=== PATIENT | female | born 1940 | race African-American/Black ===

== ENCOUNTER 2017-06-13 12:51 | Inpatient (IN) | payer MEDICARE, MEDICAID ==
[~2017-06-13] VITALS: Ht 160 cm; Wt 89.4 kg
[2017-06-13] MEDS ORDERED: MORPHINE SULFATE 4 MG/ML CPJ (NOT FOR IM USE) IV STA (14:21)
[2017-06-13] MEDS ORDERED: SODIUM CHLORIDE 0.9% 1,000 ML IV ONE (14:21)
[2017-06-13] MEDS ORDERED: ONDANSETRON HCL 4MG/2ML VIAL IV STA (14:21)
[2017-06-13 14:52] LABS: EOSINOPHILS % 0.2 % (0.0-5.0); HEMATOCRIT. 41.2 % (36.0-48.0); HEMOGLOBIN. 13.2 g/dL (12.0-16.0); LYMPHOCYTES % 10.7 % (20.0-50.0); MEAN CORPUSCULAR HEMOGLOBIN 22.4 pg (28.0-32.0); MEAN CORPUSCULAR VOLUME 69.5 fL (81.0-99.0); MONOCYTES % 9.7 % (2.0-8.0); NEUTROPHILS % 78.4 % (40.0-76.0); RED BLOOD CELL COUNT 5.92 mill/uL (4.2-5.4); RED CELL DISTRIBUTION WIDTH 17.2 % (11.6-14.6)
[2017-06-13 14:58] LABS: INR 1.1
[2017-06-13] MEDS ORDERED: PIPERACILLIN/TAZ 3.375G PREMIX 50 ML IV ONE (15:30)
[2017-06-13 15:41] LABS: PLATELET ESTIMATE DECREASED
[2017-06-13 15:44] LABS: PLATELET 68 x1000/uL (130-400)
[2017-06-13 15:59] LABS: CARBON DIOXIDE 24 mEq/L (21-32); CHLORIDE 100 mEq/L (98-107)
[2017-06-13 16:03] LABS: TROPONIN I < 0.02 ng/mL (0.00-0.04)
[2017-06-13 16:33] LABS: CLARITY URINE CLOUDY (CLEAR); COLOR URINE ORANGE (YELLOW); GLUCOSE URINE NEGATIVE (NEGATIVE); KETONES URINE 2+ (NEGATIVE); LEUKOCYTE ESTERASE URINE TRACE (NEGATIVE); NITRITE URINE POSITIVE (NEGATIVE); OCCULT BLOOD URINE 1+ (NEGATIVE); PROTEIN URINE 1+ (NEGATIVE); SPECIFIC GRAVITY URINE 1.039 (1.005-1.030)
[2017-06-13] MEDS ORDERED: IOHEXOL-300 100 ML BOTTLE ONE (17:01)
[2017-06-13] MEDS ORDERED: ENOXAPARIN 100MG/ML SYR SUBCUT ONE (17:15)
[2017-06-13 18:50] VITALS: BP 145/68
[2017-06-13 20:00] VITALS: BP 133/77
[2017-06-13] MEDS ORDERED: METF10002 PO (22:03)
[2017-06-13] MEDS ORDERED: FURO20TA4 PO (22:04)
[2017-06-13] MEDS ORDERED: BENA20TA3 PO (22:04)
[2017-06-13] MEDS ORDERED: GABA-531 PO (22:05)
[2017-06-13] MEDS ORDERED: AMA4 PO (22:06)
[2017-06-13] MEDS ORDERED: ESOM40CA PO (22:06)
[2017-06-13] MEDS ORDERED: SIMV20TA6 PO (22:08)
[2017-06-13] MEDS ORDERED: MIRA25TA PO (22:08)
[2017-06-13] MEDS ORDERED: CARB1TAB9 PO (22:10)
[2017-06-13] MEDS ORDERED: FERR325T6 PO (22:11)
[2017-06-13] MEDS ORDERED: ASPI-1159 PO (22:12)
[2017-06-13] MEDS ORDERED: DEXTROSE 50% WATER 50ML SYRINGE IV PRN (23:15)
[2017-06-13] MEDS ORDERED: IPRATROPIUM/ALBUTEROL 0.5-3(2.5)MG/3ML NEB HHN PRN (23:19)
[2017-06-13] MEDS ORDERED: CLONIDINE 0.2MG TABLET PO PRN (23:20)
[2017-06-14] VITALS: BP 134/68
[2017-06-14] MEDS: DEXT 5%/0.45% NACL 1000ML 1,000 ML IV SCH ×2 (00:36→18:02)
[2017-06-14] MEDS: PIPERACILLIN/TAZ 3.375G PREMIX 50 ML IV SCH ×4 (00:49→17:37)
[2017-06-14 04:06] VITALS: BP 152/80
[2017-06-14] MEDS: MORPHINE SULFATE 4 MG/ML CPJ (NOT FOR IM USE) IV PRN ×2 (04:20→11:18)
[2017-06-14] MEDS: INSULIN LISPRO 100 UNITS/ML SUBCUT SCH ×4 (06:00→17:38)
[2017-06-14] MEDS: BLOOD SUGAR DIAGNOSTIC STRIP TEST SCH ×4 (06:00→16:44)
[2017-06-14 07:00] LABS: HEMATOCRIT 34.5 % (36.0-48.0); HEMOGLOBIN 11.2 g/dL (12.0-16.0); MEAN CORPUSCULAR HEMOGLOBIN 22.3 pg (28.0-32.0); MEAN CORPUSCULAR VOLUME 68.8 fL (81.0-99.0); PLATELET 53 x1000/uL (130-400); RED BLOOD CELL COUNT 5.02 mill/uL (4.2-5.4); RED CELL DISTRIBUTION WIDTH 16.7 % (11.6-14.6)
[2017-06-14] MEDS: PANTOPRAZOLE 40MG DR TABLET PO SCH (07:10)
[2017-06-14 07:11] LABS: INR 1.1
[2017-06-14 07:49] LABS: CARBON DIOXIDE 25 mEq/L (21-32)
[2017-06-14 07:59] LABS: CHLORIDE 103 mEq/L (98-107)
[2017-06-14 08:00] VITALS: BP 146/80
[2017-06-14 08:42] LABS: CARCINO EMBRYONIC ANTIGEN < 0.5 ng/ml; HEPATITIS A AB IGM NEGATIVE (NEGATIVE); HEPATITIS B CORE AB IGM NEGATIVE; HEPATITIS B SURFACE ANTIGEN NEGATIVE
[2017-06-14] MEDS: OXYBUTYNIN CHLORIDE 5MG TABLET PO SCH ×2 (09:00→21:00)
[2017-06-14] MEDS ORDERED: MIRABEGRON 25 MG PO SCH (09:00)
[2017-06-14] MEDS: BENAZEPRIL 20MG TABLET PO SCH (09:00)
[2017-06-14] MEDS: GABAPENTIN 300MG CAPSULE PO SCH ×2 (09:00→16:40)
[2017-06-14] MEDS: FUROSEMIDE 20MG TABLET PO SCH (09:00)
[2017-06-14] MEDS: CARBIDOPA/LEVODOPA 25/100MG TABLET PO SCH ×2 (09:00→16:40)
[2017-06-14] MEDS ORDERED: APIXABAN 5 MG TABLET PO NR (10:50)
[2017-06-14] MEDS ORDERED: SODIUM CHLORIDE 0.9% 10ML VIAL ONE (10:52)
[2017-06-14] MEDS ORDERED: SIMETHICONE 40 MG/0.6 ML 30ML ONE (10:52)
[2017-06-14] MEDS ORDERED: IPRATROPIUM/ALBUTEROL 0.5-3(2.5)MG/3ML NEB HHN PRN (11:00)
[2017-06-14 11:16] LABS: BG BASE EXCESS 1.4 mmol/L (-2.0-2.0); BG CARBOXYHEMOGLOBIN 1.4 % (0.5-1.5); BG DEOXYHEMOGLOBIN 10.4 % (0.0-5.0); BG FRACTION INSPIRED OXYGEN 21; BG HCO3 ACT 25.9 mmol/L (22.0-26.0); BG METHEMOGLOBIN 0.2 % (0.0-1.5); BG OXYGEN SATURATION 89.4 % (92.0-98.5); BG PCO2 40.4 mmHg (35.0-45.0); BG PH 7.424 (7.350-7.450); BG PO2 56.9 mmHg (75.0-100.0); BG SAMPLE SITE LEFT BRACHIAL; BG TOTAL HEMOGLOBIN 12.4 g/dL (12.0-18.0); BG VENT MODE ROOM AIR
[2017-06-14 12:00] VITALS: BP 131/69
[2017-06-14] MEDS ORDERED: FENTANYL CITRATE/PF 50MCG/ML 2ML VIAL ONE (14:18)
[2017-06-14] MEDS ORDERED: MIDAZOLAM HCL 5 MG/5 ML VIAL ONE (14:18)
[2017-06-14] MEDS ORDERED: FENTANYL CITRATE/PF 50MCG/ML 2ML VIAL IV PRN (14:18)
[2017-06-14] MEDS ORDERED: MIDAZOLAM HCL 5 MG/5 ML VIAL IV PRN (14:30)
[2017-06-14] MEDS ORDERED: MORPHINE SULFATE 4 MG/ML CPJ (NOT FOR IM USE) IV NR (15:00)
[2017-06-14] MEDS: ONDANSETRON HCL 4MG/2ML VIAL IV PRN (15:13)
[2017-06-14 16:00] VITALS: BP 141/77
[2017-06-14] MEDS: APIXABAN 5 MG TABLET PO SCH (16:40)
[2017-06-14] MEDS ORDERED: MEDICATION NOT ON FORMULARY EA (Simvastatin 1 TAB) PO SCH (17:00)
[2017-06-14 20:00] VITALS: BP 130/75
[2017-06-14] MEDS: ATORVASTATIN CALCIUM 10MG TABLET PO SCH (21:27)
[2017-06-15] VITALS: BP 134/74
[2017-06-15] MEDS: PIPERACILLIN/TAZ 3.375G PREMIX 50 ML IV SCH ×5 (00:59→23:07)
[2017-06-15] MEDS: DEXT 5%/0.45% NACL 1000ML 1,000 ML IV SCH ×3 (01:00→21:03)
[2017-06-15] MEDS: INSULIN LISPRO 100 UNITS/ML SUBCUT SCH ×5 (01:06→23:08)
[2017-06-15 04:00] VITALS: BP 127/68
[2017-06-15] MEDS: MORPHINE SULFATE 4 MG/ML CPJ (NOT FOR IM USE) IV PRN (06:06)
[2017-06-15] MEDS: BLOOD SUGAR DIAGNOSTIC STRIP TEST SCH ×5 (06:10→23:09)
[2017-06-15 06:59] LABS: BASOPHILS % 0.2 % (0.0-2.0); HEMATOCRIT. 34.2 % (36.0-48.0); HEMOGLOBIN. 11.1 g/dL (12.0-16.0); LYMPHOCYTES % 14.1 % (20.0-50.0); MEAN CORPUSCULAR HEMOGLOBIN 22.5 pg (28.0-32.0); MEAN CORPUSCULAR VOLUME 69.3 fL (81.0-99.0); MEAN PLATELET VOLUME 10.4 fl (7.4-10.4); MONOCYTES % 9.9 % (2.0-8.0); NEUTROPHILS % 74.8 % (40.0-76.0); PLATELET 58 x1000/uL (130-400); RED BLOOD CELL COUNT 4.93 mill/uL (4.2-5.4); RED CELL DISTRIBUTION WIDTH 16.9 % (11.6-14.6)
[2017-06-15] MEDS: PANTOPRAZOLE 40MG DR TABLET PO SCH (07:00)
[2017-06-15 07:52] LABS: CARBON DIOXIDE 25 mEq/L (21-32); CHLORIDE 102 mEq/L (98-107); CREATINE KINASE 15 IU/L (26-192); CREATINE KINASE MB FRACTION < 0.5 ng/mL (0.5-3.6); PHOSPHORUS 2.4 mg/dL (2.5-4.9); PREALBUMIN 3.8 mg/dL (20.0-40.0); TROPONIN I < 0.02 ng/mL (0.00-0.04)
[2017-06-15 08:00] VITALS: BP 105/60
[2017-06-15] MEDS: BENAZEPRIL 20MG TABLET PO SCH (08:09)
[2017-06-15] MEDS: CARBIDOPA/LEVODOPA 25/100MG TABLET PO SCH ×2 (08:19→17:25)
[2017-06-15] MEDS: OXYBUTYNIN CHLORIDE 5MG TABLET PO SCH ×2 (08:19→20:28)
[2017-06-15] MEDS: APIXABAN 5 MG TABLET PO SCH ×2 (08:19→17:25)
[2017-06-15] MEDS: GABAPENTIN 300MG CAPSULE PO SCH ×2 (08:20→17:25)
[2017-06-15] MEDS: FUROSEMIDE 20MG TABLET PO SCH (08:20)
[2017-06-15 12:00] VITALS: BP 114/62
[2017-06-15] MEDS: POTASSIUM-SODIUM PHOSPHATE POWDER PACKET PO SCH (13:45)
[2017-06-15 16:00] VITALS: BP 123/73
[2017-06-15] MEDS: CALCIUM CARBONATE 1250MG TABLET (500MG ELEMENTAL CALCIUM) PO SCH (17:25)
[2017-06-15 20:00] VITALS: BP 126/80
[2017-06-15] MEDS: ATORVASTATIN CALCIUM 10MG TABLET PO SCH (20:28)
[2017-06-15 23:58] LABS: PLATELET ESTIMATE DECREASED
[2017-06-16] VITALS: BP 125/76
[2017-06-16 04:00] VITALS: BP 120/74
[2017-06-16] MEDS: PIPERACILLIN/TAZ 3.375G PREMIX 50 ML IV SCH ×4 (05:46→23:58)
[2017-06-16] MEDS: BLOOD SUGAR DIAGNOSTIC STRIP TEST SCH ×4 (05:50→23:54)
[2017-06-16] MEDS: INSULIN LISPRO 100 UNITS/ML SUBCUT SCH ×4 (06:11→23:55)
[2017-06-16] MEDS: PANTOPRAZOLE 40MG DR TABLET PO SCH (06:17)
[2017-06-16 08:00] VITALS: BP 138/76
[2017-06-16] MEDS: OXYBUTYNIN CHLORIDE 5MG TABLET PO SCH ×2 (10:01→20:45)
[2017-06-16] MEDS: GABAPENTIN 300MG CAPSULE PO SCH ×2 (10:02→17:28)
[2017-06-16] MEDS: POTASSIUM-SODIUM PHOSPHATE POWDER PACKET PO SCH (10:02)
[2017-06-16] MEDS: FUROSEMIDE 20MG TABLET PO SCH (10:02)
[2017-06-16] MEDS: APIXABAN 5 MG TABLET PO SCH ×2 (10:02→17:28)
[2017-06-16] MEDS: BENAZEPRIL 20MG TABLET PO SCH (10:02)
[2017-06-16] MEDS: CARBIDOPA/LEVODOPA 25/100MG TABLET PO SCH ×2 (10:02→17:28)
[2017-06-16] MEDS: CALCIUM CARBONATE 1250MG TABLET (500MG ELEMENTAL CALCIUM) PO SCH ×2 (10:02→17:28)
[2017-06-16] MEDS: ONDANSETRON HCL 4MG/2ML VIAL IV PRN (10:09)
[2017-06-16 12:00] VITALS: BP 158/78
[2017-06-16 16:00] VITALS: BP 128/69
[2017-06-16] MEDS: DEXT 5%/0.45% NACL 1000ML 1,000 ML IV SCH (16:06)
[2017-06-16] MEDS: ACETAMINOPHEN 325MG TABLET PO PRN (19:58)
[2017-06-16 20:00] VITALS: BP 124/72
[2017-06-16] MEDS: ATORVASTATIN CALCIUM 10MG TABLET PO SCH (20:45)
[2017-06-17] VITALS: BP 124/73
[2017-06-17 04:00] VITALS: BP 118/73
[2017-06-17] MEDS: PIPERACILLIN/TAZ 3.375G PREMIX 50 ML IV SCH ×3 (05:51→18:48)
[2017-06-17] MEDS: BLOOD SUGAR DIAGNOSTIC STRIP TEST SCH ×3 (05:56→18:29)
[2017-06-17] MEDS: INSULIN LISPRO 100 UNITS/ML SUBCUT SCH ×3 (05:57→18:00)
[2017-06-17] MEDS: PANTOPRAZOLE 40MG DR TABLET PO SCH (06:25)
[2017-06-17 08:00] VITALS: BP 139/72
[2017-06-17 08:02] LABS: CARBON DIOXIDE 29 mEq/L (21-32); CHLORIDE 98 mEq/L (98-107)
[2017-06-17 08:05] LABS: BASOPHILS % 0.6 % (0.0-2.0); EOSINOPHILS % 2.7 % (0.0-5.0); HEMATOCRIT. 33.3 % (36.0-48.0); HEMOGLOBIN. 10.8 g/dL (12.0-16.0); LYMPHOCYTES % 16.7 % (20.0-50.0); MEAN CORPUSCULAR HEMOGLOBIN 22.4 pg (28.0-32.0); MEAN CORPUSCULAR VOLUME 68.7 fL (81.0-99.0); MEAN PLATELET VOLUME 10.7 fl (7.4-10.4); MONOCYTES % 11.3 % (2.0-8.0); NEUTROPHILS % 68.7 % (40.0-76.0); PLATELET 65 x1000/uL (130-400); RED BLOOD CELL COUNT 4.85 mill/uL (4.2-5.4); RED CELL DISTRIBUTION WIDTH 16.4 % (11.6-14.6)
[2017-06-17] MEDS: POTASSIUM-SODIUM PHOSPHATE POWDER PACKET PO SCH (09:03)
[2017-06-17] MEDS: OXYBUTYNIN CHLORIDE 5MG TABLET PO SCH ×2 (09:03→20:28)
[2017-06-17] MEDS: FUROSEMIDE 20MG TABLET PO SCH (09:03)
[2017-06-17] MEDS: CARBIDOPA/LEVODOPA 25/100MG TABLET PO SCH ×2 (09:03→18:48)
[2017-06-17] MEDS: BENAZEPRIL 20MG TABLET PO SCH (09:03)
[2017-06-17] MEDS: GABAPENTIN 300MG CAPSULE PO SCH ×2 (09:03→18:48)
[2017-06-17] MEDS: APIXABAN 5 MG TABLET PO SCH ×2 (09:03→18:48)
[2017-06-17] MEDS: CALCIUM CARBONATE 1250MG TABLET (500MG ELEMENTAL CALCIUM) PO SCH ×2 (09:03→18:48)
[2017-06-17] MEDS: DEXT 5%/0.45% NACL 1000ML 1,000 ML IV SCH (09:03)
[2017-06-17 12:00] VITALS: BP 119/76
[2017-06-17] MEDS ORDERED: IPRATROPIUM/ALBUTEROL 0.5-3(2.5)MG/3ML NEB HHN SCH (12:00)
[2017-06-17 16:00] VITALS: BP 129/71
[2017-06-17 20:00] VITALS: BP 154/75
[2017-06-17] MEDS: ATORVASTATIN CALCIUM 10MG TABLET PO SCH (20:28)
[2017-06-18] VITALS: BP 149/80
[2017-06-18] MEDS: BLOOD SUGAR DIAGNOSTIC STRIP TEST SCH ×4 (00:11→23:44)
[2017-06-18] MEDS: PIPERACILLIN/TAZ 3.375G PREMIX 50 ML IV SCH ×5 (00:16→23:35)
[2017-06-18] MEDS: DEXT 5%/0.45% NACL 1000ML 1,000 ML IV SCH ×2 (00:16→16:05)
[2017-06-18 04:00] VITALS: BP 141/81
[2017-06-18] MEDS: PANTOPRAZOLE 40MG DR TABLET PO SCH (05:57)
[2017-06-18 08:00] VITALS: BP 141/71
[2017-06-18] MEDS: GABAPENTIN 300MG CAPSULE PO SCH ×2 (08:39→18:02)
[2017-06-18] MEDS: OXYBUTYNIN CHLORIDE 5MG TABLET PO SCH ×2 (08:40→20:46)
[2017-06-18] MEDS: APIXABAN 5 MG TABLET PO SCH ×2 (08:40→18:02)
[2017-06-18] MEDS: BENAZEPRIL 20MG TABLET PO SCH (08:41)
[2017-06-18] MEDS: CALCIUM CARBONATE 1250MG TABLET (500MG ELEMENTAL CALCIUM) PO SCH ×2 (08:41→18:02)
[2017-06-18] MEDS: CARBIDOPA/LEVODOPA 25/100MG TABLET PO SCH ×2 (08:41→18:02)
[2017-06-18] MEDS: POTASSIUM-SODIUM PHOSPHATE POWDER PACKET PO SCH (08:42)
[2017-06-18] MEDS: FUROSEMIDE 20MG TABLET PO SCH (08:42)
[2017-06-18] MEDS: INSULIN LISPRO 100 UNITS/ML SUBCUT SCH ×4 (11:36→23:44)
[2017-06-18 16:00] VITALS: BP 158/80
[2017-06-18 20:00] VITALS: BP 127/58
[2017-06-18] MEDS: ATORVASTATIN CALCIUM 10MG TABLET PO SCH (20:46)
[2017-06-19] VITALS: BP 129/89
[2017-06-19 04:00] VITALS: BP 121/67
[2017-06-19] MEDS: PIPERACILLIN/TAZ 3.375G PREMIX 50 ML IV SCH ×3 (05:46→17:02)
[2017-06-19] MEDS: DEXT 5%/0.45% NACL 1000ML 1,000 ML IV SCH ×2 (05:47→17:03)
[2017-06-19] MEDS: BLOOD SUGAR DIAGNOSTIC STRIP TEST SCH ×3 (06:00→17:12)
[2017-06-19 06:21] LABS: BASOPHILS % 0.6 % (0.0-2.0); EOSINOPHILS % 3.2 % (0.0-5.0); HEMATOCRIT. 33.7 % (36.0-48.0); HEMOGLOBIN. 10.9 g/dL (12.0-16.0); LYMPHOCYTES % 19.5 % (20.0-50.0); MEAN CORPUSCULAR HEMOGLOBIN 22.2 pg (28.0-32.0); MEAN CORPUSCULAR VOLUME 68.4 fL (81.0-99.0); MONOCYTES % 10.3 % (2.0-8.0); NEUTROPHILS % 66.4 % (40.0-76.0); RED BLOOD CELL COUNT 4.92 mill/uL (4.2-5.4); RED CELL DISTRIBUTION WIDTH 16.4 % (11.6-14.6)
[2017-06-19] MEDS: PANTOPRAZOLE 40MG DR TABLET PO SCH (06:37)
[2017-06-19] MEDS: INSULIN LISPRO 100 UNITS/ML SUBCUT SCH ×3 (06:37→17:11)
[2017-06-19 07:37] VITALS: BP 132/69
[2017-06-19 07:41] LABS: CARBON DIOXIDE 29 mEq/L (21-32); CHLORIDE 98 mEq/L (98-107)
[2017-06-19 08:33] LABS: PLATELET 71 x1000/uL (130-400)
[2017-06-19] MEDS: BENAZEPRIL 20MG TABLET PO SCH (09:00)
[2017-06-19] MEDS: FUROSEMIDE 20MG TABLET PO SCH (09:00)
[2017-06-19] MEDS: OXYBUTYNIN CHLORIDE 5MG TABLET PO SCH ×2 (09:00→21:00)
[2017-06-19] MEDS: CARBIDOPA/LEVODOPA 25/100MG TABLET PO SCH ×2 (09:00→17:00)
[2017-06-19] MEDS: GABAPENTIN 300MG CAPSULE PO SCH ×2 (09:00→17:00)
[2017-06-19] MEDS: CALCIUM CARBONATE 1250MG TABLET (500MG ELEMENTAL CALCIUM) PO SCH ×2 (09:00→17:00)
[2017-06-19] MEDS: APIXABAN 5 MG TABLET PO SCH (09:00)
[2017-06-19] MEDS: POTASSIUM-SODIUM PHOSPHATE POWDER PACKET PO SCH (09:00)
[2017-06-19 10:12] LABS: 25-HYDROXY VITAMIN D3 5.5 ng/mL (.)
[2017-06-19] MEDS ORDERED: POTASSIUM CHLORIDE 20MEQ TABLET SR PO SCH ×2 (11:45→17:00)
[2017-06-19 11:50] VITALS: BP 123/78
[2017-06-19 15:46] VITALS: BP 117/72
[2017-06-19 20:00] VITALS: BP 156/75
[2017-06-19] MEDS: PANTOPRAZOLE SODIUM 40 MG/VIAL IV SCH (21:00)
[2017-06-19] MEDS: ATORVASTATIN CALCIUM 10MG TABLET PO SCH (21:00)
[2017-06-20] VITALS: BP 166/91
[2017-06-20] MEDS: PIPERACILLIN/TAZ 3.375G PREMIX 50 ML IV SCH ×5 (00:38→23:52)
[2017-06-20 04:00] VITALS: BP 151/82
[2017-06-20] MEDS: BLOOD SUGAR DIAGNOSTIC STRIP TEST SCH ×5 (05:31→23:58)
[2017-06-20] MEDS: INSULIN LISPRO 100 UNITS/ML SUBCUT SCH ×5 (06:00→23:58)
[2017-06-20 06:09] LABS: INR 1.1; PARTIAL THROMBOPLASTIN TIME 33.6 sec (23.4-31.0)
[2017-06-20 06:18] LABS: BASOPHILS % 0.8 % (0.0-2.0); EOSINOPHILS % 3.4 % (0.0-5.0); HEMATOCRIT. 32.2 % (36.0-48.0); HEMOGLOBIN. 10.5 g/dL (12.0-16.0); LYMPHOCYTES % 18.6 % (20.0-50.0); MEAN CORPUSCULAR HEMOGLOBIN 22.2 pg (28.0-32.0); MEAN CORPUSCULAR VOLUME 68.1 fL (81.0-99.0); MONOCYTES % 8.6 % (2.0-8.0); NEUTROPHILS % 68.6 % (40.0-76.0); RED BLOOD CELL COUNT 4.73 mill/uL (4.2-5.4); RED CELL DISTRIBUTION WIDTH 16.3 % (11.6-14.6)
[2017-06-20 07:46] VITALS: BP 169/81
[2017-06-20 08:05] LABS: CARBON DIOXIDE 27 mEq/L (21-32); CHLORIDE 100 mEq/L (98-107)
[2017-06-20] MEDS: PANTOPRAZOLE SODIUM 40 MG/VIAL IV SCH ×3 (08:29→21:00)
[2017-06-20] MEDS: OXYBUTYNIN CHLORIDE 5MG TABLET PO SCH ×3 (08:30→21:00)
[2017-06-20] MEDS: CALCIUM CARBONATE 1250MG TABLET (500MG ELEMENTAL CALCIUM) PO SCH ×3 (08:30→17:00)
[2017-06-20] MEDS: GABAPENTIN 300MG CAPSULE PO SCH ×4 (08:30→17:00)
[2017-06-20] MEDS: BENAZEPRIL 20MG TABLET PO SCH ×2 (08:30→08:43)
[2017-06-20] MEDS: FUROSEMIDE 20MG TABLET PO SCH ×2 (08:30→08:43)
[2017-06-20] MEDS: POTASSIUM-SODIUM PHOSPHATE POWDER PACKET PO SCH ×2 (08:31→08:43)
[2017-06-20] MEDS: CARBIDOPA/LEVODOPA 25/100MG TABLET PO SCH ×3 (08:31→17:00)
[2017-06-20] MEDS: DEXT 5%/0.45% NACL 1000ML 1,000 ML IV SCH (09:34)
[2017-06-20 10:08] LABS: PLATELET 110 x1000/uL (130-400)
[2017-06-20] MEDS ORDERED: SIMETHICONE 40 MG/0.6 ML 30ML ONE (10:23)
[2017-06-20] MEDS ORDERED: SODIUM CHLORIDE 0.9% 10ML VIAL ONE (10:23)
[2017-06-20 12:00] VITALS: BP 156/86
[2017-06-20 16:00] VITALS: BP 160/76
[2017-06-20] MEDS ORDERED: FENTANYL CITRATE/PF 50MCG/ML 2ML VIAL ONE (17:24)
[2017-06-20] MEDS ORDERED: MIDAZOLAM HCL 5 MG/5 ML VIAL ONE (17:24)
[2017-06-20] MEDS ORDERED: FENTANYL CITRATE/PF 50MCG/ML 2ML VIAL IV PRN (17:26)
[2017-06-20] MEDS ORDERED: MIDAZOLAM HCL 2 MG/2 ML VIAL IV PRN (17:26)
[2017-06-20 20:00] VITALS: BP 168/91
[2017-06-20] MEDS ORDERED: MORPHINE SULFATE 4 MG/ML CPJ (NOT FOR IM USE) IV NR (20:08)
[2017-06-20] MEDS: ATORVASTATIN CALCIUM 10MG TABLET PO SCH (21:00)
[2017-06-21] VITALS: BP 138/87
[2017-06-21 04:00] VITALS: BP 141/81
[2017-06-21] MEDS: BLOOD SUGAR DIAGNOSTIC STRIP TEST SCH ×4 (05:27→23:57)
[2017-06-21] MEDS: INSULIN LISPRO 100 UNITS/ML SUBCUT SCH ×3 (06:06→17:45)
[2017-06-21 07:44] VITALS: BP 132/96
[2017-06-21] MEDS: CALCIUM CARBONATE 1250MG TABLET (500MG ELEMENTAL CALCIUM) PO SCH ×2 (08:31→17:39)
[2017-06-21] MEDS: BENAZEPRIL 20MG TABLET PO SCH (08:31)
[2017-06-21] MEDS: OXYBUTYNIN CHLORIDE 5MG TABLET PO SCH ×2 (08:31→20:33)
[2017-06-21] MEDS: CARBIDOPA/LEVODOPA 25/100MG TABLET PO SCH ×2 (08:31→17:39)
[2017-06-21] MEDS: FUROSEMIDE 20MG TABLET PO SCH (08:31)
[2017-06-21] MEDS: GABAPENTIN 300MG CAPSULE PO SCH ×2 (08:31→17:39)
[2017-06-21] MEDS: PANTOPRAZOLE SODIUM 40 MG/VIAL IV SCH ×2 (08:32→20:33)
[2017-06-21] MEDS: POTASSIUM-SODIUM PHOSPHATE POWDER PACKET PO SCH (08:32)
[2017-06-21] MEDS: DEXT 5%/0.45% NACL 1000ML 1,000 ML IV SCH ×3 (11:42→23:55)
[2017-06-21 12:00] VITALS: BP 113/67
[2017-06-21 15:58] VITALS: BP 148/80
[2017-06-21 20:00] VITALS: BP 130/72
[2017-06-21] MEDS: ACETAMINOPHEN 325MG TABLET PO PRN (20:32)
[2017-06-21] MEDS: ATORVASTATIN CALCIUM 10MG TABLET PO SCH (20:33)
[2017-06-22] VITALS: BP 115/68
[2017-06-22] MEDS: INSULIN LISPRO 100 UNITS/ML SUBCUT SCH ×4 (00:04→17:09)
[2017-06-22 04:00] VITALS: BP 109/76
[2017-06-22] MEDS: BLOOD SUGAR DIAGNOSTIC STRIP TEST SCH ×3 (06:00→17:03)
[2017-06-22 08:22] VITALS: BP 80/49
[2017-06-22] MEDS: CARBIDOPA/LEVODOPA 25/100MG TABLET PO SCH ×2 (08:42→17:10)
[2017-06-22] MEDS: FUROSEMIDE 20MG TABLET PO SCH (08:42)
[2017-06-22] MEDS: CALCIUM CARBONATE 1250MG TABLET (500MG ELEMENTAL CALCIUM) PO SCH ×2 (08:42→17:10)
[2017-06-22] MEDS: OXYBUTYNIN CHLORIDE 5MG TABLET PO SCH ×2 (08:42→20:39)
[2017-06-22] MEDS: POTASSIUM-SODIUM PHOSPHATE POWDER PACKET PO SCH (08:43)
[2017-06-22] MEDS: GABAPENTIN 300MG CAPSULE PO SCH ×2 (08:43→17:10)
[2017-06-22] MEDS: PANTOPRAZOLE SODIUM 40 MG/VIAL IV SCH ×2 (08:43→20:42)
[2017-06-22] MEDS ORDERED: APIXABAN 5 MG TABLET PO SCH (09:00)
[2017-06-22] MEDS: BENAZEPRIL 20MG TABLET PO SCH (09:00)
[2017-06-22 12:02] VITALS: BP 109/70
[2017-06-22 15:16] VITALS: BP 110/80
[2017-06-22] MEDS: DEXT 5%/0.45% NACL 1000ML 1,000 ML IV SCH ×2 (15:28→20:39)
[2017-06-22 20:00] VITALS: BP 134/72
[2017-06-22] MEDS: ATORVASTATIN CALCIUM 10MG TABLET PO SCH (20:40)
[2017-06-23] VITALS: BP 127/72
[2017-06-23] MEDS: BLOOD SUGAR DIAGNOSTIC STRIP TEST SCH ×4 (00:36→17:28)
[2017-06-23] MEDS: INSULIN LISPRO 100 UNITS/ML SUBCUT SCH ×4 (00:41→17:47)
[2017-06-23 04:00] VITALS: BP 147/88
[2017-06-23 08:00] VITALS: BP 148/88
[2017-06-23] MEDS: CALCIUM CARBONATE 1250MG TABLET (500MG ELEMENTAL CALCIUM) PO SCH ×2 (08:37→17:48)
[2017-06-23] MEDS: POTASSIUM-SODIUM PHOSPHATE POWDER PACKET PO SCH (08:37)
[2017-06-23] MEDS: OXYBUTYNIN CHLORIDE 5MG TABLET PO SCH ×2 (08:37→21:16)
[2017-06-23] MEDS: PANTOPRAZOLE SODIUM 40 MG/VIAL IV SCH ×2 (08:37→21:16)
[2017-06-23] MEDS: FUROSEMIDE 20MG TABLET PO SCH (08:38)
[2017-06-23] MEDS: CARBIDOPA/LEVODOPA 25/100MG TABLET PO SCH ×2 (08:38→17:48)
[2017-06-23] MEDS: GABAPENTIN 300MG CAPSULE PO SCH ×2 (08:38→17:48)
[2017-06-23] MEDS: BENAZEPRIL 20MG TABLET PO SCH (08:45)
[2017-06-23] MEDS: ONDANSETRON HCL 4MG/2ML VIAL IV PRN (10:23)
[2017-06-23 12:17] VITALS: BP 138/79
[2017-06-23 16:56] VITALS: BP 147/75
[2017-06-23] MEDS: DEXT 5%/0.45% NACL 1000ML 1,000 ML IV SCH (17:48)
[2017-06-23 20:00] VITALS: BP 125/71
[2017-06-23] MEDS: ATORVASTATIN CALCIUM 10MG TABLET PO SCH (21:16)
[2017-06-24] VITALS: BP 116/87
[2017-06-24] MEDS: INSULIN LISPRO 100 UNITS/ML SUBCUT SCH ×4 (00:45→17:10)
[2017-06-24 04:00] VITALS: BP 110/63
[2017-06-24] MEDS: BLOOD SUGAR DIAGNOSTIC STRIP TEST SCH ×3 (06:14→17:10)
[2017-06-24] MEDS: DEXT 5%/0.45% NACL 1000ML 1,000 ML IV SCH ×2 (06:38→09:34)
[2017-06-24 07:53] VITALS: BP 132/69
[2017-06-24] MEDS: POTASSIUM-SODIUM PHOSPHATE POWDER PACKET PO SCH (09:00)
[2017-06-24] MEDS: PANTOPRAZOLE SODIUM 40 MG/VIAL IV SCH ×2 (09:32→21:26)
[2017-06-24] MEDS: OXYBUTYNIN CHLORIDE 5MG TABLET PO SCH ×2 (09:33→21:26)
[2017-06-24] MEDS: CARBIDOPA/LEVODOPA 25/100MG TABLET PO SCH ×2 (09:33→17:09)
[2017-06-24] MEDS: BENAZEPRIL 20MG TABLET PO SCH (09:33)
[2017-06-24] MEDS: FUROSEMIDE 20MG TABLET PO SCH (09:33)
[2017-06-24] MEDS: CALCIUM CARBONATE 1250MG TABLET (500MG ELEMENTAL CALCIUM) PO SCH ×2 (09:33→17:09)
[2017-06-24] MEDS: GABAPENTIN 300MG CAPSULE PO SCH ×2 (09:33→17:09)
[2017-06-24 11:50] VITALS: BP 123/82
[2017-06-24 15:38] VITALS: BP 125/72
[2017-06-24] MEDS: ONDANSETRON HCL 4MG/2ML VIAL IV PRN (18:19)
[2017-06-24 20:00] VITALS: BP 96/64
[2017-06-24] MEDS: ATORVASTATIN CALCIUM 10MG TABLET PO SCH (21:26)
[2017-06-25] VITALS (7 sets, daily range): BP systolic 99–138; BP diastolic 63–79
[2017-06-25] MEDS: BLOOD SUGAR DIAGNOSTIC STRIP TEST SCH ×4 (00:16→17:35)
[2017-06-25] MEDS: INSULIN LISPRO 100 UNITS/ML SUBCUT SCH ×4 (00:20→17:50)
[2017-06-25] MEDS: DEXT 5%/0.45% NACL 1000ML 1,000 ML IV SCH ×3 (00:23→23:56)
[2017-06-25 07:34] LABS: BASOPHILS % 0.4 % (0.0-2.0); EOSINOPHILS % 3.1 % (0.0-5.0); HEMATOCRIT. 33.4 % (36.0-48.0); HEMOGLOBIN. 10.9 g/dL (12.0-16.0); LYMPHOCYTES % 16.2 % (20.0-50.0); MEAN CORPUSCULAR HEMOGLOBIN 22.7 pg (28.0-32.0); MEAN CORPUSCULAR VOLUME 69.7 fL (81.0-99.0); MONOCYTES % 8.8 % (2.0-8.0); NEUTROPHILS % 71.5 % (40.0-76.0); RED BLOOD CELL COUNT 4.79 mill/uL (4.2-5.4); RED CELL DISTRIBUTION WIDTH 16.5 % (11.6-14.6)
[2017-06-25 08:21] LABS: CHLORIDE 99 mEq/L (98-107)
[2017-06-25] MEDS: OXYBUTYNIN CHLORIDE 5MG TABLET PO SCH ×2 (08:30→21:46)
[2017-06-25] MEDS: FUROSEMIDE 20MG TABLET PO SCH (08:30)
[2017-06-25] MEDS: POTASSIUM-SODIUM PHOSPHATE POWDER PACKET PO SCH (08:30)
[2017-06-25] MEDS: CALCIUM CARBONATE 1250MG TABLET (500MG ELEMENTAL CALCIUM) PO SCH ×2 (08:30→17:41)
[2017-06-25] MEDS: GABAPENTIN 300MG CAPSULE PO SCH ×2 (08:30→17:40)
[2017-06-25] MEDS: PANTOPRAZOLE SODIUM 40 MG/VIAL IV SCH ×2 (08:30→21:46)
[2017-06-25] MEDS: BENAZEPRIL 20MG TABLET PO SCH (08:30)
[2017-06-25] MEDS: CARBIDOPA/LEVODOPA 25/100MG TABLET PO SCH ×2 (08:31→17:41)
[2017-06-25 08:41] LABS: CARBON DIOXIDE 25 mEq/L (21-32)
[2017-06-25] MEDS: ATORVASTATIN CALCIUM 10MG TABLET PO SCH (21:46)
[2017-06-26] VITALS (7 sets, daily range): BP systolic 103–135; BP diastolic 47–81
[2017-06-26] MEDS: BLOOD SUGAR DIAGNOSTIC STRIP TEST SCH ×4 (00:13→18:18)
[2017-06-26] MEDS: INSULIN LISPRO 100 UNITS/ML SUBCUT SCH ×4 (00:17→17:22)
[2017-06-26] MEDS: CARBIDOPA/LEVODOPA 25/100MG TABLET PO SCH ×2 (09:00→16:39)
[2017-06-26] MEDS: FUROSEMIDE 20MG TABLET PO SCH (09:00)
[2017-06-26] MEDS: GABAPENTIN 300MG CAPSULE PO SCH ×2 (09:00→16:39)
[2017-06-26] MEDS: CALCIUM CARBONATE 1250MG TABLET (500MG ELEMENTAL CALCIUM) PO SCH ×2 (09:00→16:39)
[2017-06-26] MEDS: OXYBUTYNIN CHLORIDE 5MG TABLET PO SCH ×2 (09:00→21:02)
[2017-06-26] MEDS: POTASSIUM-SODIUM PHOSPHATE POWDER PACKET PO SCH (09:01)
[2017-06-26] MEDS: BENAZEPRIL 20MG TABLET PO SCH (09:01)
[2017-06-26] MEDS: PANTOPRAZOLE SODIUM 40 MG/VIAL IV SCH ×2 (09:01→21:02)
[2017-06-26] MEDS: DEXT 5%/0.45% NACL 1000ML 1,000 ML IV SCH (11:59)
[2017-06-26] MEDS: ATORVASTATIN CALCIUM 10MG TABLET PO SCH (21:02)
== END 2017-06-26 21:30 | DRG 374 ==
LOC: ER 14:11 → 8WST 16:16 → EDBEDREQ 16:17 → ENRESERV 17:33
PROVIDERS: ADMIT Internal Medicine; ATTEND Internal Medicine
PROC: 0DB38ZX Excision of Lower Esophagus, Via Natural or Artificial Opening Endoscopic, Diagnostic (ICD-10-PCS; principal; 2017-06-14 14:00)
PROC: 0DH63UZ Insertion of Feeding Device into Stomach, Percutaneous Approach (ICD-10-PCS; 2017-06-20)
DX: C15.5 Malignant neoplasm of lower third of esophagus (principal); J18.1 Lobar pneumonia, unspecified organism; E43 Unspecified severe protein-calorie malnutrition; D69.6 Thrombocytopenia, unspecified; E11.51 Type 2 diabetes mellitus with diabetic peripheral angiopathy without gangrene; R13.10 Dysphagia, unspecified; E66.01 Morbid (severe) obesity due to excess calories; C78.7 Secondary malignant neoplasm of liver and intrahepatic bile duct; E83.39 Other disorders of phosphorus metabolism; J44.0 Chronic obstructive pulmonary disease with (acute) lower respiratory infection; I42.9 Cardiomyopathy, unspecified; I85.00 Esophageal varices without bleeding; N39.0 Urinary tract infection, site not specified; K76.6 Portal hypertension; I27.82 Chronic pulmonary embolism; J98.11 Atelectasis; G20 Parkinson's disease; I11.0 Hypertensive heart disease with heart failure; I50.9 Heart failure, unspecified; E83.51 Hypocalcemia; D50.9 Iron deficiency anemia, unspecified; E11.9 Type 2 diabetes mellitus without complications; R09.02 Hypoxemia; K80.20 Calculus of gallbladder without cholecystitis without obstruction; K74.60 Unspecified cirrhosis of liver; K31.9 Disease of stomach and duodenum, unspecified; N32.81 Overactive bladder; E78.5 Hyperlipidemia, unspecified; F03.90 Unspecified dementia, unspecified severity, without behavioral disturbance, psychotic disturbance, mood disturbance, and anxiety; I25.10 Atherosclerotic heart disease of native coronary artery without angina pectoris; I49.3 Ventricular premature depolarization; J98.01 Acute bronchospasm; M19.90 Unspecified osteoarthritis, unspecified site; R32 Unspecified urinary incontinence; D63.8 Anemia in other chronic diseases classified elsewhere; R62.7 Adult failure to thrive; M06.9 Rheumatoid arthritis, unspecified; Z68.34 Body mass index [BMI] 34.0-34.9, adult; Z80.8 Family history of malignant neoplasm of other organs or systems; Z82.49 Family history of ischemic heart disease and other diseases of the circulatory system; Z80.3 Family history of malignant neoplasm of breast; Z85.3 Personal history of malignant neoplasm of breast; Z87.11 Personal history of peptic ulcer disease; Z87.891 Personal history of nicotine dependence; Z90.11 Acquired absence of right breast and nipple; Z92.3 Personal history of irradiation; Z82.3 Family history of stroke; Z79.899 Other long term (current) drug therapy; Z79.82 Long term (current) use of aspirin; Z79.84 Long term (current) use of oral hypoglycemic drugs; Z74.01 Bed confinement status; Z91.14 Patient's other noncompliance with medication regimen
CPT/HCPCS: 36415; 36600; 71010; 71020; 74177; 76705; 80048; 80053; 81001; 82105; 82306; 82375; 82378; 82550; 82553; 82805; 82962; 83036; 83605; 83690; 83735; 83880; 84100; 84134; 84484; 84550; 85025; 85027; 85610; 85730; 86705; 86709; 86803; 87040; 87070; 87077; 87086; 87186; 87340; 88108; 88305; 88307; 88312; 93005; 93306; 93970; 94640; 96365; 96372; 96375; 97116; 97162; 97166; 97530; 99291; A4216; A6261; C1893; C9113; J1650; J1815; J2250; J2270; J2405; J2543; J3010; J3490; J7030; J7042; J7620; Q9967

== ENCOUNTER 2017-07-10 17:02 | Inpatient (IN) | payer MEDICARE, MEDICAID ==
[~2017-07-10] VITALS: Ht 162.6 cm; Wt 79.8 kg
[~2017-07-10 17:02] MED LIST: AMA4 PO; ASPI-1159 PO; BENA20TA3 PO; CARB1TAB9 PO; ESOM40CA PO; FERR325T6 PO; FURO20TA4 PO; GABA-531 PO; METF10002 PO; MIRA25TA PO; SIMV20TA6 PO
[2017-07-10] MEDS ORDERED: FAMOTIDINE 20MG/2ML VIAL IV STA (18:29)
[2017-07-10] MEDS ORDERED: PANTOPRAZOLE SODIUM 40 MG/VIAL IV STA (18:29)
[2017-07-10] MEDS ORDERED: ONDANSETRON HCL 4MG/2ML VIAL IV STA (18:29)
[2017-07-10] MEDS ORDERED: OCTREOTIDE ACETATE 50 MCG/ML 1ML IV ONE (18:30)
[2017-07-10 19:33] LABS: HEMATOCRIT. 34.9 % (36.0-48.0); HEMOGLOBIN. 11.4 g/dL (12.0-16.0); MEAN CORPUSCULAR HEMOGLOBIN 22.5 pg (28.0-32.0); MEAN CORPUSCULAR VOLUME 68.8 fL (81.0-99.0); MEAN PLATELET VOLUME 11.1 fl (7.4-10.4); PLATELET 108 x1000/uL (130-400); RED BLOOD CELL COUNT 5.07 mill/uL (4.2-5.4); RED CELL DISTRIBUTION WIDTH 17.6 % (11.6-14.6)
[2017-07-10 19:41] LABS: CHLORIDE 98 mEq/L (98-107)
[2017-07-10 19:43] LABS: INR 1.1; PROTHROMBIN TIME 11.9 sec (9.4-11.6)
[2017-07-10 19:45] LABS: CARBON DIOXIDE 27 mEq/L (21-32); ETHANOL BLOOD < 10 mg/dL
[2017-07-10 19:50] LABS: TROPONIN I < 0.02 ng/mL (0.00-0.04)
[2017-07-10 20:36] LABS: ATYPICAL LYMPHOCYTES 2; PLATELET ESTIMATE DECREASED
[2017-07-10] MEDS ORDERED: ACETAMINOPHEN 325MG TABLET PO PRN (23:00)
[2017-07-10] MEDS ORDERED: CLONIDINE 0.1MG TABLET PO PRN (23:00)
[2017-07-10 23:39] LABS: CLARITY URINE CLEAR (CLEAR); COLOR URINE YELLOW (YELLOW); GLUCOSE URINE NEGATIVE (NEGATIVE); KETONES URINE NEGATIVE (NEGATIVE); LEUKOCYTE ESTERASE URINE NEGATIVE (NEGATIVE); NITRITE URINE NEGATIVE (NEGATIVE); OCCULT BLOOD URINE NEGATIVE (NEGATIVE); PROTEIN URINE NEGATIVE (NEGATIVE); SPECIFIC GRAVITY URINE 1.022 (1.005-1.030)
[2017-07-10 23:54] LABS: *AMPHETAMINES SCREEN URINE NEGATIVE (NEGATIVE); *BARBITURATES SCREEN URINE NEGATIVE (NEGATIVE); *BENZODIAZEPINES SCREEN URINE NEGATIVE (NEGATIVE); *COCAINE SCREEN URINE NEGATIVE (NEGATIVE); CANNABINOID URINE SCREEN PRESUMTIVE POSITIVE (NEGATIVE); METHADONE URINE SCREEN NEGATIVE (NEGATIVE); OPIATES URINE SCREEN NEGATIVE (NEGATIVE); PHENCYCLIDINE URINE SCREEN NEGATIVE (NEGATIVE)
[2017-07-11] VITALS (7 sets, daily range): BP systolic 98–150; BP diastolic 73–80
[2017-07-11] MEDS ORDERED: DEXTROSE 50% WATER 50ML SYRINGE IV PRN (02:00)
[2017-07-11] MEDS ORDERED: MVI, ADULT NO.1 10 ML, THIAMINE HCL 100 MG in SODIUM CHLORIDE 0.9% 1,000 ML IV NR ×3 (03:00)
[2017-07-11] MEDS: INSULIN LISPRO 100 UNITS/ML SUBCUT SCH ×4 (07:50→21:00)
[2017-07-11] MEDS: BLOOD SUGAR DIAGNOSTIC STRIP TEST SCH ×4 (08:09→21:47)
[2017-07-11] MEDS: DEXT 5%/0.9% NACL 1,000 ML IV SCH (18:00)
[2017-07-12 00:50] VITALS: BP 149/70
[2017-07-12 05:08] VITALS: BP 140/73
[2017-07-12] MEDS: ONDANSETRON HCL 4MG/2ML VIAL IV PRN (05:17)
[2017-07-12 06:52] LABS: BASOPHILS % 0.6 % (0.0-2.0); EOSINOPHILS % 3.3 % (0.0-5.0); HEMATOCRIT. 34.4 % (36.0-48.0); LYMPHOCYTES % 18.1 % (20.0-50.0); MEAN CORPUSCULAR HEMOGLOBIN 22.4 pg (28.0-32.0); MEAN PLATELET VOLUME 11.3 fl (7.4-10.4); MONOCYTES % 7.2 % (2.0-8.0); NEUTROPHILS % 70.8 % (40.0-76.0); PLATELET 98 x1000/uL (130-400); RED BLOOD CELL COUNT 4.92 mill/uL (4.2-5.4); RED CELL DISTRIBUTION WIDTH 18.4 % (11.6-14.6)
[2017-07-12 07:42] LABS: CARBON DIOXIDE 26 mEq/L (21-32); CHLORIDE 103 mEq/L (98-107)
[2017-07-12] MEDS ORDERED: METFORMIN HCL 500MG SR TABLET 24HR PO SCH (07:50)
[2017-07-12] MEDS: INSULIN LISPRO 100 UNITS/ML SUBCUT SCH ×4 (07:50→21:00)
[2017-07-12] MEDS: BLOOD SUGAR DIAGNOSTIC STRIP TEST SCH ×4 (07:56→21:00)
[2017-07-12] MEDS: DEXT 5%/0.9% NACL 1,000 ML IV SCH ×2 (07:58→22:04)
[2017-07-12 08:00] VITALS: BP 134/75
[2017-07-12] MEDS ORDERED: GLIMEPIRIDE 4MG TABLET PO SCH (09:00)
[2017-07-12] MEDS ORDERED: CARBIDOPA/LEVODOPA 25/100MG TABLET CR PO SCH (09:00)
[2017-07-12] MEDS ORDERED: GABAPENTIN 300MG CAPSULE PO SCH (09:00)
[2017-07-12] MEDS ORDERED: PANTOPRAZOLE 40MG DR TABLET PO SCH (09:00)
[2017-07-12] MEDS ORDERED: FERROUS SULFATE 325MG TABLET PO SCH (09:00)
[2017-07-12] MEDS ORDERED: BENAZEPRIL 20MG TABLET PO SCH (09:00)
[2017-07-12] MEDS ORDERED: FUROSEMIDE 20MG TABLET PO SCH (09:00)
[2017-07-12] MEDS ORDERED: FENTANYL CITRATE/PF 50MCG/ML 2ML VIAL ONE (11:44)
[2017-07-12] MEDS ORDERED: MIDAZOLAM HCL 5 MG/5 ML VIAL ONE (11:45)
[2017-07-12 12:00] VITALS: BP 138/74
[2017-07-12] MEDS ORDERED: FENTANYL CITRATE/PF 50MCG/ML 2ML VIAL IV ONE (12:15)
[2017-07-12] MEDS ORDERED: MIDAZOLAM HCL 2 MG/2 ML VIAL IV PRN (12:19)
[2017-07-12 16:00] VITALS: BP 143/80
[2017-07-12] MEDS ORDERED: CLONIDINE 0.1MG TABLET GT PRN (16:58)
[2017-07-12] MEDS ORDERED: ACETAMINOPHEN 650MG/20.3ML UDC PO PRN (17:00)
[2017-07-12 20:00] VITALS: BP 138/82
[2017-07-12] MEDS: ATORVASTATIN CALCIUM 20MG TABLET GT SCH (22:03)
[2017-07-12] MEDS: METFORMIN HCL 500MG TABLET GT SCH (22:03)
[2017-07-12] MEDS: OXYBUTYNIN CHLORIDE 5MG TABLET GT SCH (22:04)
[2017-07-12] MEDS: CARBIDOPA/LEVODOPA 25/100MG TABLET GT SCH (22:04)
[2017-07-13] VITALS: BP 106/44
[2017-07-13 04:00] VITALS: BP 140/97
[2017-07-13] MEDS: BLOOD SUGAR DIAGNOSTIC STRIP TEST SCH ×4 (07:15→20:37)
[2017-07-13] MEDS: LANSOPRAZOLE 30MG DR CAPSULE GT SCH (07:27)
[2017-07-13 08:00] VITALS: BP 130/73
[2017-07-13] MEDS: INSULIN LISPRO 100 UNITS/ML SUBCUT SCH ×4 (08:26→20:37)
[2017-07-13] MEDS: GABAPENTIN 300MG CAPSULE GT SCH ×2 (08:27→17:41)
[2017-07-13] MEDS: DEXT 5%/0.9% NACL 1,000 ML IV SCH (08:27)
[2017-07-13] MEDS: OXYBUTYNIN CHLORIDE 5MG TABLET GT SCH ×2 (08:27→21:02)
[2017-07-13] MEDS: FUROSEMIDE 20MG TABLET GT SCH (08:27)
[2017-07-13] MEDS: CARBIDOPA/LEVODOPA 25/100MG TABLET GT SCH ×2 (08:28→21:02)
[2017-07-13] MEDS: METFORMIN HCL 500MG TABLET GT SCH ×2 (08:28→17:41)
[2017-07-13] MEDS: GLIMEPIRIDE 4MG TABLET GT SCH (08:28)
[2017-07-13] MEDS: FERROUS SULFATE 300MG/5ML UDC GT SCH ×2 (08:29→17:41)
[2017-07-13] MEDS: BENAZEPRIL 20MG TABLET GT SCH (08:29)
[2017-07-13] MEDS: ACETAMINOPHEN 650MG/20.3ML UDC GT PRN (08:30)
[2017-07-13 12:00] VITALS: BP 132/76
[2017-07-13] MEDS ORDERED: SODIUM CHLORIDE 0.9% 10ML VIAL ONE (12:16)
[2017-07-13] MEDS ORDERED: SIMETHICONE 40 MG/0.6 ML 30ML ONE (12:16)
[2017-07-13] MEDS: ONDANSETRON HCL 4MG/2ML VIAL IV PRN (13:19)
[2017-07-13 16:00] VITALS: BP 116/76
[2017-07-13 20:00] VITALS: BP 132/72
[2017-07-13] MEDS: ATORVASTATIN CALCIUM 20MG TABLET GT SCH (21:02)
[2017-07-13] MEDS: SODIUM CHLORIDE 0.9% 1,000 ML IV SCH (21:02)
[2017-07-14 04:00] VITALS: BP 152/81
[2017-07-14] MEDS: BLOOD SUGAR DIAGNOSTIC STRIP TEST SCH ×4 (06:40→20:42)
[2017-07-14 06:50] LABS: INR 1.2; PROTHROMBIN TIME 12.2 sec (9.4-11.6)
[2017-07-14] MEDS: LANSOPRAZOLE 30MG DR CAPSULE GT SCH (06:50)
[2017-07-14 06:55] LABS: BASOPHILS % 0.2 % (0.0-2.0); HEMATOCRIT. 34.4 % (36.0-48.0); LYMPHOCYTES % 17.2 % (20.0-50.0); MEAN CORPUSCULAR HEMOGLOBIN 22.6 pg (28.0-32.0); MEAN CORPUSCULAR VOLUME 71.1 fL (81.0-99.0); MONOCYTES % 8.5 % (2.0-8.0); NEUTROPHILS % 72.1 % (40.0-76.0); RED BLOOD CELL COUNT 4.84 mill/uL (4.2-5.4); RED CELL DISTRIBUTION WIDTH 18.9 % (11.6-14.6)
[2017-07-14 07:55] LABS: CARBON DIOXIDE 24 mEq/L (21-32); CHLORIDE 102 mEq/L (98-107)
[2017-07-14 08:00] VITALS: BP 132/74
[2017-07-14] MEDS: SODIUM CHLORIDE 0.9% 1,000 ML IV SCH ×2 (09:00→20:42)
[2017-07-14] MEDS: GLIMEPIRIDE 4MG TABLET GT SCH (09:55)
[2017-07-14] MEDS: FERROUS SULFATE 300MG/5ML UDC GT SCH ×2 (09:55→17:09)
[2017-07-14] MEDS: CARBIDOPA/LEVODOPA 25/100MG TABLET GT SCH ×2 (09:55→20:42)
[2017-07-14] MEDS: OXYBUTYNIN CHLORIDE 5MG TABLET GT SCH ×2 (09:55→20:42)
[2017-07-14] MEDS: GABAPENTIN 300MG CAPSULE GT SCH ×2 (09:55→17:09)
[2017-07-14] MEDS: METFORMIN HCL 500MG TABLET GT SCH ×2 (09:55→17:10)
[2017-07-14] MEDS: INSULIN LISPRO 100 UNITS/ML SUBCUT SCH ×4 (10:09→20:49)
[2017-07-14] MEDS: FUROSEMIDE 20MG TABLET GT SCH (10:26)
[2017-07-14] MEDS: BENAZEPRIL 20MG TABLET GT SCH (10:26)
[2017-07-14 11:52] LABS: PLATELET ESTIMATE DECREASED
[2017-07-14 11:54] LABS: PLATELET 96 x1000/uL (130-400)
[2017-07-14 12:00] VITALS: BP 129/79
[2017-07-14] MEDS: ACETAMINOPHEN 650MG/20.3ML UDC GT PRN (14:33)
[2017-07-14] MEDS ORDERED: ONDANSETRON 4MG/5ML UDC GT PRN (14:36)
[2017-07-14 16:00] VITALS: BP 123/73
[2017-07-14 20:00] VITALS: BP 98/69
[2017-07-14] MEDS: ATORVASTATIN CALCIUM 20MG TABLET GT SCH (20:42)
[2017-07-15] VITALS: BP 105/64
[2017-07-15 04:00] VITALS: BP 105/63
[2017-07-15] MEDS: ONDANSETRON HCL 4MG TABLET GT PRN ×2 (06:23→12:59)
[2017-07-15] MEDS: LANSOPRAZOLE 30MG DR CAPSULE GT SCH (06:23)
[2017-07-15] MEDS: BLOOD SUGAR DIAGNOSTIC STRIP TEST SCH ×4 (06:24→20:12)
[2017-07-15] MEDS: INSULIN LISPRO 100 UNITS/ML SUBCUT SCH ×4 (07:50→20:12)
[2017-07-15 08:00] VITALS: BP 111/73
[2017-07-15] MEDS: OXYBUTYNIN CHLORIDE 5MG TABLET GT SCH ×2 (09:57→20:30)
[2017-07-15] MEDS: GABAPENTIN 300MG CAPSULE GT SCH ×2 (09:57→18:36)
[2017-07-15] MEDS: CARBIDOPA/LEVODOPA 25/100MG TABLET GT SCH ×2 (09:57→20:30)
[2017-07-15] MEDS: BENAZEPRIL 20MG TABLET GT SCH (09:57)
[2017-07-15] MEDS: FUROSEMIDE 20MG TABLET GT SCH (09:57)
[2017-07-15] MEDS: SODIUM CHLORIDE 0.9% 1,000 ML IV SCH ×2 (09:58→22:30)
[2017-07-15] MEDS: METFORMIN HCL 500MG TABLET GT SCH ×2 (09:58→18:18)
[2017-07-15] MEDS: FERROUS SULFATE 300MG/5ML UDC GT SCH ×2 (09:58→18:18)
[2017-07-15] MEDS: GLIMEPIRIDE 4MG TABLET GT SCH (09:58)
[2017-07-15] MEDS: ACETAMINOPHEN 650MG/20.3ML UDC GT PRN (10:16)
[2017-07-15 12:00] VITALS: BP 102/65
[2017-07-15 16:00] VITALS: BP 98/62
[2017-07-15] MEDS ORDERED: GLUCAGON,HUMAN RECOMBINANT 1MG/VIAL IM NR (17:31)
[2017-07-15 20:00] VITALS: BP 107/63
[2017-07-15] MEDS: ATORVASTATIN CALCIUM 20MG TABLET GT SCH (20:30)
[2017-07-16] VITALS: BP 101/65
[2017-07-16 04:00] VITALS: BP 118/66
[2017-07-16] MEDS: LANSOPRAZOLE 30MG DR CAPSULE GT SCH (06:31)
[2017-07-16] MEDS: BLOOD SUGAR DIAGNOSTIC STRIP TEST SCH ×4 (06:54→20:40)
[2017-07-16] MEDS: INSULIN LISPRO 100 UNITS/ML SUBCUT SCH ×4 (06:54→20:40)
[2017-07-16 08:00] VITALS: BP 108/71
[2017-07-16] MEDS: GLIMEPIRIDE 4MG TABLET GT SCH (09:00)
[2017-07-16] MEDS: BENAZEPRIL 20MG TABLET GT SCH (09:00)
[2017-07-16] MEDS: METFORMIN HCL 500MG TABLET GT SCH ×2 (09:00→17:00)
[2017-07-16] MEDS: OXYBUTYNIN CHLORIDE 5MG TABLET GT SCH ×2 (09:46→20:40)
[2017-07-16] MEDS: CARBIDOPA/LEVODOPA 25/100MG TABLET GT SCH ×2 (09:46→20:40)
[2017-07-16] MEDS: FUROSEMIDE 20MG TABLET GT SCH (09:47)
[2017-07-16] MEDS: GABAPENTIN 300MG CAPSULE GT SCH ×2 (09:48→18:24)
[2017-07-16] MEDS: FERROUS SULFATE 300MG/5ML UDC GT SCH ×2 (09:49→18:24)
[2017-07-16] MEDS: SODIUM CHLORIDE 0.9% 1,000 ML IV SCH (11:00)
[2017-07-16 12:00] VITALS: BP 107/57
[2017-07-16] MEDS: ONDANSETRON HCL 4MG TABLET GT PRN (14:13)
[2017-07-16 16:00] VITALS: BP 101/74
[2017-07-16 20:00] VITALS: BP 127/78
[2017-07-16] MEDS: ATORVASTATIN CALCIUM 20MG TABLET GT SCH (20:40)
[2017-07-16] MEDS: ONDANSETRON HCL 4MG/2ML VIAL IV PRN (23:49)
[2017-07-17] VITALS: BP 124/80
[2017-07-17 04:00] VITALS: BP 145/73
[2017-07-17] MEDS: LANSOPRAZOLE 30MG DR CAPSULE GT SCH (06:09)
[2017-07-17] MEDS: BLOOD SUGAR DIAGNOSTIC STRIP TEST SCH ×3 (06:35→17:16)
[2017-07-17] MEDS: INSULIN LISPRO 100 UNITS/ML SUBCUT SCH ×3 (07:42→17:16)
[2017-07-17 08:00] VITALS: BP 110/71
[2017-07-17] MEDS: FUROSEMIDE 20MG TABLET GT SCH (09:23)
[2017-07-17] MEDS: FERROUS SULFATE 300MG/5ML UDC GT SCH ×2 (09:23→17:15)
[2017-07-17] MEDS: BENAZEPRIL 20MG TABLET GT SCH (09:24)
[2017-07-17] MEDS: CARBIDOPA/LEVODOPA 25/100MG TABLET GT SCH (09:24)
[2017-07-17] MEDS: OXYBUTYNIN CHLORIDE 5MG TABLET GT SCH (09:24)
[2017-07-17] MEDS: GLIMEPIRIDE 4MG TABLET GT SCH (09:24)
[2017-07-17] MEDS: METFORMIN HCL 500MG TABLET GT SCH ×2 (09:24→17:15)
[2017-07-17] MEDS: GABAPENTIN 300MG CAPSULE GT SCH ×2 (09:25→17:15)
[2017-07-17] MEDS: ONDANSETRON HCL 4MG TABLET GT PRN (09:29)
[2017-07-17] MEDS: SODIUM CHLORIDE 0.9% 1,000 ML IV SCH (11:39)
[2017-07-17 12:00] VITALS: BP 114/68
[2017-07-17 15:49] VITALS: BP 114/68
[2017-07-17 16:00] VITALS: BP 114/66
== END 2017-07-17 19:17 | DRG 374 ==
LOC: ER 17:08 → 6EST 20:55 → EDBEDREQ 21:07 → EDBEDREQTM 21:07 → ENRESERV 21:39 → EDBEDREQSVC 22:41 → ENRESERV 23:16
PROVIDERS: ADMIT Internal Medicine; ATTEND Internal Medicine
PROC: 0DJ68ZZ Inspection of Stomach, Via Natural or Artificial Opening Endoscopic (ICD-10-PCS; principal; 2017-07-12 10:00)
DX: C15.5 Malignant neoplasm of lower third of esophagus (principal); I26.99 Other pulmonary embolism without acute cor pulmonale; K92.0 Hematemesis; I11.0 Hypertensive heart disease with heart failure; G20 Parkinson's disease; C78.00 Secondary malignant neoplasm of unspecified lung; C22.0 Liver cell carcinoma; I50.9 Heart failure, unspecified; E66.01 Morbid (severe) obesity due to excess calories; R18.8 Other ascites; I85.00 Esophageal varices without bleeding; Z66 Do not resuscitate; K57.90 Diverticulosis of intestine, part unspecified, without perforation or abscess without bleeding; K74.60 Unspecified cirrhosis of liver; K22.2 Esophageal obstruction; K80.20 Calculus of gallbladder without cholecystitis without obstruction; B18.2 Chronic viral hepatitis C; E11.9 Type 2 diabetes mellitus without complications; E78.5 Hyperlipidemia, unspecified; F03.90 Unspecified dementia, unspecified severity, without behavioral disturbance, psychotic disturbance, mood disturbance, and anxiety; J44.9 Chronic obstructive pulmonary disease, unspecified; M19.90 Unspecified osteoarthritis, unspecified site; N32.81 Overactive bladder; Z80.8 Family history of malignant neoplasm of other organs or systems; Z82.49 Family history of ischemic heart disease and other diseases of the circulatory system; Z85.01 Personal history of malignant neoplasm of esophagus; Z80.3 Family history of malignant neoplasm of breast; Z86.711 Personal history of pulmonary embolism; Z90.11 Acquired absence of right breast and nipple; Z93.1 Gastrostomy status; Z51.5 Encounter for palliative care; Z85.05 Personal history of malignant neoplasm of liver; Z85.3 Personal history of malignant neoplasm of breast; Z68.30 Body mass index [BMI] 30.0-30.9, adult
CPT/HCPCS: 36415; 71010; 74176; 80048; 80053; 80305; 81003; 82040; 82270; 82962; 83605; 83690; 83880; 84484; 85025; 85610; 93005; 96374; 96375; 99285; A4216; C1893; C9113; G0482; J1610; J1815; J2250; J2354; J2405; J3010; J3411; J3490; J7030; J7042; Q0162